=== PATIENT | male | born 1975 | race Caucasian/White ===

== ENCOUNTER 2017-06-04 08:12 | Emergency (ER) | payer OTHER ==
[~2017-06-04] VITALS: Ht 172.7 cm; Wt 72.6 kg
[2017-06-04 08:12] VITALS: BP 158/100
--- NOTE | 2017-06-04 08:12 | NUR ---
Patient was BIBA and taken to bed 03 via gurney per EMS.
--- NOTE | 2017-06-04 08:14 | NUR ---
41[facility] [employer] C/O ALTERED MENTAL STATUS X TODAY; PT AWAKE, ALERT ON ARRIVAL. PER EMS, PT ADMITTED TO METH USE 4 DAYS AGO. HX: UNOBTAINABLE;RX: UNOBTAINABLE. DENIES N/V/D; ABRASION TO FEET; PT AWAKE,ORIENTED TO NAME BUT PT'S NOT ANSWER ANY QUESTIONS;PT LOOKS ANXIOUS. WITH EVEN AND STEADY GAIT; LUNGS CLEAR BL; HR EVEN AND REGULAR; PT DOES NOT HAVE ANY FEVER, CP, SOB, OR COUGH AT THIS TIME;PATIENT POSITIONED FOR COMFORT; HOB ELEVATED; BEDRAILS UP X2; BED DOWN. ER MD MADE AWARE OF PT STATUS.
--- NOTE | 2017-06-04 08:30 | NUR ---
ALEXI WHITNEY EVALUATING PT AT BEDSIDE. Addendum: 06/04/17 at 0859 by MED1 PROVIED URINE CUP FOR URINE COLLECTION.
--- NOTE | 2017-06-04 08:39 | NUR ---
LAB AT BEDSIDE. Addendum: 06/04/17 at 0857 by MED1 PT REFUSED IV INSERTION AND BLOOD DRAW; ER MD DR. WHITNEY NOTIFIED; PT AWAKE, ALERT, APPEARS ANXIOUS WITH VSS AT THIS TIME; WILL CONTINUE TO MONITOR.
[2017-06-04] MEDS ORDERED: NACL 0.9% 1,000 ML IV ONE ×2 (08:40→12:10)
--- NOTE | 2017-06-04 08:51 | NUR ---
X RAY AT BEDSIDE.
--- NOTE | 2017-06-04 08:58 | NUR ---
EKG AT BEDSIDE.
[2017-06-04] MEDS ORDERED: LORazepam 2 MG/ML VIAL IVP ONE (09:10)
--- NOTE | 2017-06-04 09:10 | NUR ---
Note italoone in EDM - 06/04/17 at 0928 by MED1 INSERTED IV CATH NO20G LFA BY SUSIE GAINES ;CHARGE NURSE.PT APPEARS ANXIOUS ; NOTIFIED ER FOR RESTRAING ' PT TOLERATED PROCEDURE WELL, IV PATENT/ INTACT.
--- NOTE | 2017-06-04 09:10 | NUR ---
INSERTED IV CATH NO20G LFA BY SUSIE GAINES ;CHARGE NURSE. PT TOLERATED PROCEDURE WELL, IV PATENT/ INTACT. Addendum: 06/04/17 at 0948 by MED1 LAB SPECIMEN DONE
[2017-06-04] MEDS ORDERED: LORazepam 2 MG/ML VIAL ONE (09:18)
--- NOTE | 2017-06-04 09:20 | NUR ---
WOUND CARE BOTH FEET DONE BY JUN AYALA. PT TOLERATED PROCEDURE WELL.
--- NOTE | 2017-06-04 09:37 | NUR ---
PT AAO X4. PT STS PT TOOK MATHS 5 DAYS AGO. PT FEELS CALM DOWN .Patient appears to be resting comfortably in bed. Vital Signs within normal limits. Respirations even and unlabored.WILL CONTINUE TO MONITOR. DENIES PAIN.
[2017-06-04 09:41] LABS: HEMOGLOBIN 17.3 g/dL (12.0-18.0); MEAN CORPUSCULAR HEMOGLOBIN 29 pg (27-31)
[2017-06-04 09:44] LABS: HEMATOCRIT 51.8 % (36-52); MEAN CORPUSCULAR HGB CONC 33 g/dL (33-37); MEAN CORPUSCULAR VOLUME 86 fL (80-94); PLATELET COUNT (AUTO) 241 K/uL (140-450); RED CELL DISTRIBUTION WIDTH 13.1 % (11.6-13.7); WHITE BLOOD COUNT (AUTO) 17.1 K/uL (4.8-10.8)
[2017-06-04 09:55] LABS: LYMPHOCYTES % (MANUAL) 13 % (20-46); MONOCYTES % (MANUAL) 6 % (5-12); NEUTROPHILS % (MANUAL) 81 (43-65)
[2017-06-04 09:56] LABS: ACETAMINOPHEN < 0.5 ug/ml (10-30); ALCOHOL, BLOOD < 3 mg/dL (<3)
[2017-06-04 10:03] LABS: ANION GAP 24.3 (8-16); CALCIUM 9.7 mg/dL (8.5-10.1); CARBON DIOXIDE 20.2 mmol/L (21-32); CHLORIDE 107 mmol/L (98-107); CREATININE 1.4 mg/dL (0.7-1.3); GFR ARICAN-AMERICAN 72 mL/min (>90); GFR NON ARICAN-AMERICAN 60 mL/min (>90); GLUCOSE 93 mg/dL (74-106); POTASSIUM 4.5 mmol/L (3.5-5.1); SODIUM SERUM 147 mmol/L (136-145); UREA NITROGEN, BLOOD 39 mg/dL (7-18)
[2017-06-04 10:11] LABS: ALANINE AMINOTRANSFERASE 41 U/L (16-63); ALBUMIN 4.7 g/dL (3.4-5.0); ALKALINE PHOSPHATASE 110 U/L (46-116); ASPARTATE AMINOTRANSFERASE 49 U/L (15-37); TOTAL PROTEIN, SERUM 8.6 g/dL (6.4-8.2)
--- NOTE | 2017-06-04 10:40 | NUR ---
Patient appears to be resting comfortably in bed. BP 140/88, P110, Respirations even and unlabored; MD AWARE.WILL CONTINUE TO MONITOR.
--- NOTE | 2017-06-04 11:02 | NUR ---
ER MD DR WHITNEY REEVALUATING PT AT BEDSIDE.
--- NOTE | 2017-06-04 11:15 | NUR ---
PT URENATED ; URINE DIP DONE. SENT URINE SPECIMEN TO LAB. Addendum: 06/04/17 at 1119 by MED1 PT URENATED ;URINE 700 ML
--- NOTE | 2017-06-04 11:31 | NUR ---
Patient appears to be SLEEPING comfortably in bed. Vital Signs within normal limits. Respirations even and unlabored.WILL CONTINUE TO MONITOR.
--- NOTE | 2017-06-04 12:17 | NUR ---
Patient appears to be SLEEPING comfortably in bed. Vital Signs within normal limits. Respirations even and unlabored.WILL CONTINUE TO MONITOR
[2017-06-04 13:22] LABS: BILIRUBIN,URINE 1+ (NEGATIVE); BLOOD, URINE TRACE-L (NEGATIVE); COLOR,URINE YELLOW (YELLOW); LEUKOCYTE ESTERASE ,URINE NEGATIVE (NEGATIVE); NITRITE, URINE NEGATIVE (NEGATIVE); PROTEIN,URINE 1+ (NEGATIVE); UGLUCOSE NEGATIVE (NEGATIVE)
[2017-06-04 13:27] LABS: ICTOTEST NEGATIVE (NEGATIVE)
[2017-06-04 13:29] LABS: AMPHETAMINE, URINE POS. ng/ml (NEG <=1000); BARBITURATE, URINE NEG. ng/ml (NEG <=200); BENZODIAZEPINE, URINE NEG. ng/mL (NEG <=200); CANNABINOID, URINE NEG. ng/mL (NEG <=50); COCAINE, URINE NEG. ng/mL (NEG <=300); OPIATE, URINE NEG. ng/mL (NEG <=2000); PHENCYCLIDINE SCREEN,URINE NEG. ng/mL (NEG <=25)
[2017-06-04 13:30] LABS: RBC,URINE 0-2 /HPF (0-5)
[2017-06-04 13:31] LABS: BACTERIA,URINE OCCASSIONAL /HPF (None Seen); MUCUS,URINE 1+ /LPF (None Seen); SQUAMOUS EPITHELIAL CELL,UR 0-3 (FEW) /LPF (0-3 (FEW)); WBC,URINE 0-2 /HPF (0-5)
[2017-06-04 13:32] LABS: APPEARANCE,URINE SL. HAZY (CLEAR)
--- NOTE | 2017-06-04 14:06 | NUR ---
PARENTS AT BEDSIDE.
--- NOTE | 2017-06-04 14:20 | NUR ---
IV removed, catheter intact and site benign. Applied folded 4x4 gauze and tape to stop bleeding.
[2017-06-04 14:23] VITALS: BP 110/68
--- NOTE | 2017-06-04 14:23 | NUR ---
Patient discharged with v/s stable. Written and verbal after care instructions given and explained. Patient verbalized understanding. Ambulatory with steady gait. All questions addressed prior to discharge. Advised to follow up with PMD.
== END 2017-06-04 14:23 | disposition home or self-care (01) ==
LOC: MED 08:12
DX: F19.10 Other psychoactive substance abuse, uncomplicated (principal); F31.9 Bipolar disorder, unspecified
CPT/HCPCS: 36415; 71010; 80053; 80305; 81001; 85025; 93005; 96361; 96374; 99285; G0480; G0482; J2060; J7030; Q0092

== ENCOUNTER 2022-10-18 12:24 | Emergency (ER) | payer OTHER ==
[~2022-10-18] VITALS: Ht 175.3 cm; Wt 72.6 kg
[2022-10-18 12:27] VITALS: BP 133/94
--- NOTE | 2022-10-18 12:30 | NUR ---
PT PLACED IN BED 2 VIA GURNEY BY ROBBY
--- NOTE | 2022-10-18 13:15 | NUR ---
46 y/o male biba from car d/t altered level of concisousness. Per EMS, patient was not answering questions and not acting appropiately. Patient was answering questions at the time of assessment. Per EMS, they found a smoking pipe in his pocket. Denies any pain or discomfort. Medical History: Denies NKDA
[2022-10-18] MEDS ORDERED: LORazepam 1 MG TAB PO ONE (13:20)
[2022-10-18] MEDS ORDERED: OLANZapine 5 MG ODT SL ONE (13:20)
[2022-10-18] MEDS ORDERED: OLAN15TA1 PO (14:32)
[2022-10-18 14:42] VITALS: BP 116/82
--- NOTE | 2022-10-18 14:42 | NUR ---
Patient discharged with v/s stable. Written and verbal after care instructions given. Patient alert, oriented and verbalized understanding of instructions. Ambulatory with steady gait. All questions addressed prior to discharge. ID band removed. Patient advised to follow up with PMD. Rx of Olanzapine given. Opportunity to ask questions provided and answered.
--- NOTE | 2022-10-18 14:59 | NUR ---
CALLED PT LEFT V-MAIL HE LEFT $3.00 AT BEDSIDE IT WILL BE IN [facility]
--- NOTE | 2022-10-18 15:40 | NUR ---
Chart checked and completed. The patient's care was reviewed and supervised by Sunitha oRdriguez RN.
== END 2022-10-18 14:42 | disposition home or self-care (01) ==
LOC: MED 12:24
DX: F29 Unspecified psychosis not due to a substance or known physiological condition (principal); F15.10 Other stimulant abuse, uncomplicated; F17.200 Nicotine dependence, unspecified, uncomplicated
CPT/HCPCS: 99283

== ENCOUNTER 2023-08-22 16:53 | Emergency (ER) | payer OTHER ==
[~2023-08-22] VITALS: Ht 170.2 cm; Wt 68.0 kg
[~2023-08-22 16:53] MED LIST: OLAN15TA1 PO
[2023-08-22 17:01] VITALS: BP 136/72; PULSE 72; RESP 14; TEMP 98.4; O2SAT 100
[2023-08-22] MEDS ORDERED: CEPH250C16 PO (18:05)
[2023-08-22 18:30] VITALS: BP 136/72; PULSE 72; RESP 14; TEMP 98.4; O2SAT 100
== END 2023-08-22 18:31 | disposition home or self-care (01) ==
LOC: MED 16:53
DX: S90.562A Insect bite (nonvenomous), left ankle, initial encounter (principal); L08.89 Other specified local infections of the skin and subcutaneous tissue; Z79.899 Other long term (current) drug therapy; Z79.2 Long term (current) use of antibiotics; W57.XXXA Bitten or stung by nonvenomous insect and other nonvenomous arthropods, initial encounter; Y92.89 Other specified places as the place of occurrence of the external cause; Y93.89 Activity, other specified; Y99.8 Other external cause status
CPT/HCPCS: 99283